=== PATIENT | male | born 2000 | race Caucasian/White ===

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

== ENCOUNTER 2022-04-06 11:09 | Emergency (ER) | payer OTHER, SELFPAY ==
[2022-04-06 11:29] VITALS: BP 143/76; PULSE 85; RESP 17; TEMP 37.2; O2SAT 97; BMI 27.1
--- NOTE | 2022-04-06 11:41 | DI.RAD.S_ITS ---
PROCEDURE: XR FINGER LT MIN 2V INDICATIONS: cut off tip of 1st finger (thumb) TECHNIQUE: AP hand, 2 views of the 1st finger(s) acquired. COMPARISON: None. FINDINGS: Bones: No displaced fracture. No dislocation. Soft tissues: No radiopaque foreign body. Soft tissue injury of the thumb. IMPRESSION: Soft tissue injury of the thumb, without acute osseous abnormality. If there is high concern for occult injury, consider repeat radiography or cross-sectional imaging. Dictated by: Marquise Trevino M.D. on 04/06/2022 at 12:05 Approved by: Marquise Trevino M.D. on 04/06/2022 at 12:06
--- NOTE | 2022-04-06 12:45 | ED_ITS ---
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 He is right-hand dominant, does not remember when his last tetanus was states that it took some time for the bleeding to stop. Related Data Previous Rx's Medication Instructions Recorded guanfacine 1 mg tablet 1 mg PO DAILY #30 tabs 02/22/22 Allergies Allergy/AdvReac Type Severity Reaction Status Date / Time No Known Drug Allergies Allergy Verified 04/06/22 11:31 Review of Systems <JOHN Cristobal - Last Filed: 04/06/22 14:41> Review of Systems ROS Unobtainable: All systems reviewed & are unremarkable except as noted in HPI and below Patient History <JOHN Cristobal - Last Filed: 04/06/22 14:41> Medical History Difficulty concentrating Encounter for routine child health examination without abnormal findings (09/03/16) Mood disorder No acute medical problems Penile adhesions w/skin bridging Substance use disorder Suicidal ideations Surgical History No pertinent past surgical history Social History Smoking Status: Never smoker alcohol intake: never Smoking Status: Never smoker alcohol intake frequency: other Substance Use Type: marijuana Exam <JOHN Cristobal - Last Filed: 04/06/22 14:41> Narrative Exam Narrative: Reviewed vitals signs and nursing notes. General: cooperative, comfortable, in no acute distress, well groomed MSK: moves all digits of left hand, no tendon injury, fingertip amputation with sliver of nail involvement the distal tip. Wound was thoroughly irrigated with normal saline and gauze and cleansed by myself. Finger tip tissue was not reattached. Bleeding was controlled with pressure and was nonstick dressing after antibiotic ointment. Patient tolerated well with pain. Use prilocaine to help with pain control. Skin: brisk capillary refill, without pallor or erythema no suspicious tendon injury or other wound Initial Vital Signs Initial Vital Signs: Vital Signs Temperature 99 F 04/06/22 11:29 Pulse Rate 85 04/06/22 11:29 Respiratory Rate 17 04/06/22 11:29 Blood Pressure 143/76 H 04/06/22 11:29 Pulse Oximetry 97 04/06/22 11:29 Oxygen Delivery Method 04/06/22 11:29 <Ron Gibson MD - Last Filed: 04/10/22 07:51> Initial Vital Signs Initial Vital Signs: Vital Signs Temperature 99 F 04/06/22 11:29 Pulse Rate 85 04/06/22 11:29 Respiratory Rate 17 04/06/22 11:29 Blood Pressure 143/76 H 04/06/22 11:29 Pulse Oximetry 97 04/06/22 11:29 Oxygen Delivery Method 04/06/22 11:29 Course <JOHN Cristobal - Last Filed: 04/06/22 14:41> Orders Ordered: Discontinued Medications Bacitracin (Bacitracin Oint 0.9 Gm Pckt) 1 applic TOP NOW ONE Stop: 04/06/22 12:29 Last Admin: 04/06/22 12:54 Dose: 1 applic Documented By: COLETTE Diphtheria/Tetanus/Acell Pertussis (Tet,Diph,Pertuss(Acell),Vac/Pf 0.5 Ml Syringe) 0.5 ml IM .ONCE ONE Stop: 04/06/22 12:29 Last Admin: 04/06/22 12:53 Dose: 0.5 ml Documented By: COLETTE Ibuprofen (Ibuprofen 400 Mg Tablet) 600 mg PO NOW ONE Stop: 04/06/22 12:32 Last Admin: 04/06/22 12:53 Dose: 600 mg Documented By: COLETTE Lidocaine/Prilocaine (Lidocaine/Prilocaine 5 Gm) 5 gm TOP NOW ONE Stop: 04/06/22 13:01 Last Admin: 04/06/22 13:06 Dose: 5 gm Documented By: COLETTE Vital Signs Vital signs: Vital Signs - 8 hr 04/06/22 11:29 04/06/22 14:16 Temperature 99 F Pulse Rate 85 62 Respiratory Rate 17 18 Blood Pressure 143/76 H 125/69 Pulse Oximetry 97 99 Oxygen Delivery Method Room Air Room Air <Ron Gibson MD - Last Filed: 04/10/22 07:51> Orders Ordered: Discontinued Medications Bacitracin (Bacitracin Oint 0.9 Gm Pckt) 1 applic TOP NOW ONE Stop: 04/06/22 12:29 Last Admin: 04/06/22 12:54 Dose: 1 applic Documented By: COLETTE Diphtheria/Tetanus/Acell Pertussis (Tet,Diph,Pertuss(Acell),Vac/Pf 0.5 Ml Syringe) 0.5 ml IM .ONCE ONE Stop: 04/06/22 12:29 Last Admin: 04/06/22 12:53 Dose: 0.5 ml Documented By: COLETTE Ibuprofen (Ibuprofen 400 Mg Tablet) 600 mg PO NOW ONE Stop: 04/06/22 12:32 Last Admin: 04/06/22 12:53 Dose: 600 mg Documented By: COLETTE Lidocaine/Prilocaine (Lidocaine/Prilocaine 5 Gm) 5 gm TOP NOW ONE Stop: 04/06/22 13:01 Last Admin: 04/06/22 13:06 Dose: 5 gm Documented By: COLETTE Vital Signs Vital signs: Vital Signs - 8 hr 04/06/22 11:29 04/06/22 14:16 Temperature 99 F Pulse Rate 85 62 Respiratory Rate 17 18 Blood Pressure 143/76 H 125/69 Pulse Oximetry 97 99 Oxygen Delivery Method Room Air Room Air MDM - Wound/Laceration <JOHN Cristobal - Last Filed: 04/06/22 14:41> Imaging Data Extremity x-ray #1: Radiologist's Impression: PROCEDURE:? XR FINGER LT MIN 2V ? INDICATIONS:? cut off tip of 1st finger (thumb) ? TECHNIQUE:? AP hand, 2 views of the 1st finger(s) acquired.? ? COMPARISON:? None. ? FINDINGS:? ? Bones:? No displaced fracture.? No dislocation. ? Soft tissues:? No radiopaque foreign body.? Soft tissue injury of the thumb. ? IMPRESSION:? Soft tissue injury of the thumb, without acute osseous abnormality .? If there is high concern for occult injury, consider repeat radiography or cross- sectional imaging. ? ? Dictated by: Marquise Trevino M.D. on 04/06/2022 at 12:05 ? ? Approved by: Marquise Trevino M.D. on 04/06/2022 at 12:06 ? MDM Narrative Medical decision making narrative: Chief Complaint:fingertip amputation Independent historian: Patient Differential diagnoses include but are not limited to: Fingertip amputation fingernail involvement, subungual laceration, tendon injury I have independently reviewed the patient's vital signs and nursing notes as well as prior records if available. This is an L & I claim, and documentation has been filed to medical records, Claim number: [id number] Pertinent Imaging reviewed: Finger x-ray shows soft tissue injury without fracture or bony involvement Course of care: Patient's tetanus was updated, prilocaine was applied to the fingertip, wound cleansing with normal saline, patient tolerated with mild pain. Was given ibuprofen for this, no suspicious tendon injury, sliver of distal fingernail involvement. Bleeding was controlled with pressure and a nonstick dressing with antibiotic ointment. Patient is encouraged to return to work only if the bleeding is controlled and no longer soaking through a Band-Aid. He understands to follow-up with his primary care provider as needed and to return emergency department for redness or streaking up his hand and thumb, range of motion changes, worsening pain or bleeding. Social considerations that may affect disposition: none Questions are addressed and there is agreement with the plan and for follow-up. Patient is appropriate for outpatient management. MIPS: This encounter doesn't have any diagnosis' associated with MIPS criteria. Discharge Plan Departure Patient Disposition: Home Clinical Impression: Work related injury Fingertip amputation Qualifiers: Encounter type: initial encounter Qualified Code(s): S68.119A - Complete traumatic metacarpophalangeal amputation of unspecified finger, initial encounter Instructions: DI for Avulsion Laceration (Not Requiring Sutures), DI for Nail Avulsion Injury Activity Restrictions/Additional Instructions: Thank you for coming in for your fingertip injury, I am sorry for your weight and for how painful this was. Please come back if you develop redness or streaking up your thumb, worsening pain, if the bleeding does not staph or if you are unable to go back to work due to limitations from this injury. Your [place] and [place]: [id number] Please use topical antibiotic ointment of your choice and covered with a Band- Aid so that it is sealed and changed since Band-Aid morning and night. Wear gloves if you return to work on Saturday. Please have nice date this evening, I am sorry for your injury, it should heal over the next 1-2 weeks and be less painful after today. Take ibuprofen 600 mg with 975 mg of Tylenol every 6 hours as needed. Do not take more than 4 g of Tylenol in a 24 hour period. *What to do: *Please continue to take your regular medications as directed. [x ] New medication prescriptions sent to your pharmacy: [ [facility]] [ ] New medication written as a paper prescription [ ] No new medications given *Please follow up with your primary care provider in 2-3 days, call for an appointment. Let them know you were seen in the Emergency Department and that we asked that you be seen for follow-up. We will electronically transmit a record of today's note if your PCP is in our system *If you do not have a primary care provider please contact [phone] to establish care with one of [facility] primary care providers. *Return to Emergency Department if you should have any new, worsening, or concerning symptoms, such as [fever greater than 101F, chills, worsening pain, persistent vomiting or other bothersome symptoms]. Prescriptions: No Action guanfacine 1 mg tablet 1 mg PO DAILY Qty: 30 1RF Referrals: Cristina Gonzales ARNP [Primary Care Provider] - Bret Burns MD [Family Provider] - Stand Alone Forms: Patient Portal/API <Ron Gibson MD - Last Filed: 04/10/22 07:51> [facility]: I was immediately available in the department for consultation. ?This documentation has been reviewed and I agree with assessment and plan. Supervised by Ron Gibson MD
[2022-04-06] MEDS: IBUPROFEN 400 MG TABLET 600 MG PO (12:53)
[2022-04-06] MEDS: TET,DIPH,PERTUSS(ACELL),VAC/PF 0.5 ML SYRINGE IM (12:53)
[2022-04-06] MEDS: BACITRACIN OINT 0.9 GM PCKT 1 APPLIC TOP (12:54)
[2022-04-06] MEDS: LIDOCAINE/PRILOCAINE 5 GM TOP (13:06)
[2022-04-06 14:16] VITALS: BP 125/69; PULSE 62; RESP 18; O2SAT 99
== END 2022-04-06 14:16 | disposition home or self-care (01) ==
PROVIDERS: Emergency Provider Nurse Practitioner Critical Care Medicine; Family Provider Family Medicine; PCP Nurse Practitioner
DX: S68.022A Partial traumatic metacarpophalangeal amputation of left thumb, initial encounter (principal); W26.0XXA Contact with knife, initial encounter; Z23 Encounter for immunization; Y99.0 Civilian activity done for income or pay
CPT/HCPCS: 73140; 90471; 99283; 99284; 90715

== ENCOUNTER → 2022-08-29 12:16 | Outpatient (CLI) | payer OTHER, SELFPAY ==
[2022-08-29 13:37] LABS: Add Manual Diff / Slide Review NO; Basophils Absolute Auto 0 /uL (0-100); Basophils Percent Auto 0.5 % (0-2); Eosinophils Absolute Auto 100 /uL (0-450); Eosinophils Percent Auto 2.5 % (2-4); Hemoglobin 15.3 g/dL (13.5-17.5); Lymphocytes Absolute Auto 1400 /uL (1100-4500); Lymphocytes Percent Auto 25.9 % (25-40); Mean Corpuscular HGB Conc 34.7 % (30-36); Mean Corpuscular Hemoglobin 30.3 PG (26-34); Mean Corpuscular Volume 87.6 fL (80-100); Monocytes Absolute Auto 500 /uL (0-900); Monocytes Percent Auto 8.9 % (3-14); Neutrophils Absolute Auto 3300 /uL (1500-7000); Neutrophils Percent Auto 62.2 % (50-75); Platelet Count 293 X10^3/uL (150-400); Red Blood Cell Count 5.03 X10^6/uL (4.5-5.9); Red Cell Distribution Width 13.6 % (11.6-14.8); White Blood Cell Count 5.3 X10^3/uL (4.5-11.0)
[2022-08-29 13:41] LABS: Alanine Aminotransferase 31 IU/L (<50); Albumin 4.4 g/dL (3.5-5.0); Albumin Globulin Ratio 1.4 (1.0-2.8); Alkaline Phosphatase 53 U/L (38-126); Aspartate Aminotransferase 40 IU/L (17-59); BUN Creatinine Ratio 13.8 (6-22); Blood Urea Nitrogen 12 mg/dL (9-20); Calcium 9.1 mg/dL (8.4-10.2); Carbon Dioxide 28 mmol/L (22-32); Chloride 104 mmol/L (98-107); Estimated Glomerular Filt Rate > 60 mL/min (>60); Globulin 3.1 g/dL (1.7-4.1); Glucose 86 mg/dL (70-100); HEMOLYSIS < 15 (0-50); Potassium 4.3 mmol/L (3.4-5.1); Sodium 138 mmol/L (137-145); Total Protein 7.5 g/dL (6.3-8.2)
[2022-08-29 14:05] LABS: Free T4, Direct Thyroxine 1.24 ng/dL (0.78-2.19)
[2022-08-29 14:19] LABS: Thyroid Stimulating Hormone 0.519 uIU/mL (0.47-4.68)
[2022-08-31 17:51] LABS: HIV 1 & 2 Ab/Ag 4th Gen Combo NEGATIVE (NEGATIVE); Hep C Virus Ab w/Reflex Quant NEGATIVE s/c (NEGATIVE)
== END ==
PROVIDERS: Family Provider Family Medicine; PCP Nurse Practitioner; Referring Provider Nurse Practitioner; Visit Provider Nurse Practitioner
DX: Z00.00 Encounter for general adult medical examination without abnormal findings (principal); Z11.59 Encounter for screening for other viral diseases; Z11.4 Encounter for screening for human immunodeficiency virus [HIV]
CPT/HCPCS: 36415; 80053; 84439; 84443; 84481; 85025; 86803; 87389

== ENCOUNTER → 2024-03-02 16:27 | Outpatient (CLI) | payer OTHER, SELFPAY ==
[2024-03-02 17:11] LABS: Influenza A - CEPHEID Flu A NEGATIVE (NEGATIVE); Influenza B - CEPHEID Flu B NEGATIVE (NEGATIVE); Respiratory Syncytial Virus Negative (Negative)
[2024-03-02 17:21] LABS: COVID-19 CEPHEID 4-PLEX PCR Negative (Negative)
== END ==
PROVIDERS: Family Provider Family Medicine; PCP Nurse Practitioner; Visit Provider Physician Assistant Medical
DX: R05.9 Cough, unspecified (principal)
CPT/HCPCS: 0241U

== ENCOUNTER → 2024-03-02 16:34 | Outpatient (CLI) | payer OTHER, SELFPAY ==
--- NOTE | 2024-03-02 16:35 | DI.RAD.S_ITS ---
PROCEDURE: XR CHEST 2V INDICATIONS: Cough TECHNIQUE: 2 views of the chest were acquired. COMPARISON: None. FINDINGS: Surgical changes and devices: None. Lungs and pleura: Lungs are clear. No pleural effusions or pneumothorax. Mediastinum: Mediastinal contours are normal. Heart size is normal. Bones and chest wall: No suspicious bony abnormalities. Soft tissues appear unremarkable. IMPRESSION: No acute cardiopulmonary abnormality is seen. Dictated by: Cuco Fall M.D. on 03/02/2024 at 16:54 Approved by: Cuco Fall M.D. on 03/02/2024 at 16:54
== END ==
PROVIDERS: Family Provider Family Medicine; PCP Nurse Practitioner; Referring Provider Physician Assistant Medical; Visit Provider Physician Assistant Medical
DX: R05.9 Cough, unspecified (principal)
CPT/HCPCS: 0241U; 71046

== ENCOUNTER → 2024-05-15 10:43 | Outpatient (CLI) | payer OTHER, SELFPAY ==
--- NOTE | 2024-05-15 10:44 | DI.RAD.S_ITS ---
PROCEDURE: XR FOOT LT 2V INDICATIONS: r/o retained FB, stepped on nail TECHNIQUE: 2 views of the foot were acquired. COMPARISON: None. FINDINGS: Bones: No fractures or dislocations. No suspicious bony lesions. Soft tissues: No tibiotalar joint effusion. Achilles tendon appears normal. No radiopaque foreign body. IMPRESSION: No radiopaque foreign body. Dictated by: Elvia Cruz M.D. on 05/15/2024 at 11:01 Approved by: Elvia Cruz M.D. on 05/15/2024 at 11:13
== END ==
PROVIDERS: Family Provider Family Medicine; Referring Provider Nurse Practitioner Family; Visit Provider Nurse Practitioner Family
DX: T14.8XXA Other injury of unspecified body region, initial encounter (principal)
CPT/HCPCS: 73620

== ENCOUNTER 2024-08-05 13:36 | Emergency (ER) | payer OTHER, SELFPAY ==
--- NOTE | 2024-08-05 13:45 | ED_ITS ---
<Statement entered by Joshua Rawls, - 08/05/24 16:42> Dr. Rawls: I was immediately available in the department for consultation. I did not actually see the patient. HPI - Extremity Problem General Chief complaint: Extremity Injury, Lower Stated complaint: Laceration right leg Time Seen by Provider: 08/05/24 13:44 History of Present Illness HPI Narrative: This is a 23-year-old male presents emergency department due to right thigh laceration. He was stepping down from a truck and lacerated his right distal thigh just superior to the knee. His tetanus is up-to-date. He states that his leg was otherwise functioning well. He denies a spreading redness or purulent discharge. Related Data Previous Rx's ?Medication ?Instructions ?Recorded cephalexin 500 mg capsule 500 mg PO QID 5 days #20 cap s 08/05/24 Allergies Allergy/AdvReac Type Severity Reaction Status Date / Time No Known Drug Allergies Allergy Verified 08/05/24 13:51 Review of Systems Review of Systems Narrative: GENERAL: Denies chills, fatigue, malaise, fever, sweats. HEENT: Denies sinus pain, ear pain, sore throat, difficulty swallowing, dizziness. RESPIRATORY: Denies dyspnea, cough, wheezing, hemoptysis, sputum. CARDIOVASCULAR: Denies chest pain, palpitations, orthopnea, edema, GASTROINTESTINAL: Denies nausea, vomiting, abdominal pain, diarrhea, constipation, melena. : Denies dysuria, frequency, incontinence, hematuria, urinary retention. MUSCULOSKELETAL: denies weakness, joint pain, or bony pain SKIN: Right leg laceration NEUROLOGIC: Denies weakness, headache, numbness, change in speech, confusion, seizures, incoordination. PSYCHIATRIC: No concerning psychosocial issues. 12 point review of systems is negative except for those stated above Patient History Medical History Difficulty concentrating Encounter for routine child health examination without abnormal findings (09/03/16) Mood disorder No acute medical problems Penile adhesions w/skin bridging Substance use disorder Suicidal ideations Surgical History No pertinent past surgical history Social History Smoking Status: Current every day smoker alcohol intake: never alcohol intake frequency: other Exam Narrative Exam Narrative: GENERAL: Well-developed patient, in mild distress. HEAD: Atraumatic. Normocephalic. EYES: Pupils equal round and reactive. Extraocular motions intact. No scleral icterus. No injection or drainage. ENT: Nose without bleeding, purulent drainage. Throat without erythema, tonsillar hypertrophy or exudate. Airway patent. NECK: Trachea midline. Non tender EXTREMITIES: No edema or joint tenderness. NEURO: AOx3. SKIN: Laceration to the right distal thigh approximately 10 cm in length with subcutaneous fat exposed. No evidence of any injury to the muscle. No obvious foreign bodies. No active bleeding. Initial Vital Signs Initial Vital Signs: Vital Signs Temperature 98 F 08/05/24 13:51 Pulse Rate 88 08/05/24 13:51 Respiratory Rate 16 08/05/24 13:51 Blood Pressure 135/73 08/05/24 13:51 Pulse Oximetry 96 08/05/24 13:51 Oxygen Delivery Method Room Air 08/05/24 13:51 Procedures Laceration Repair Laceration 1: Time of procedure: 15:53 Site: other (Right leg) Size (cm): 10 Description: linear Depth: simple, single layer (Involves subcutaneous layer as well) Local Anesthetic: lidocaine 1% and with epi Amount of anesthesia used (mL): 10 Pre-repair: irrigated extensively and cleansed with chlorhexadine Skin layer closed with: nylon Skin layer suture size: 4-0 Number of sutures: 13 Technique: simple, interrupted Subcutaneous layer closed with: vicryl Subcutaneous layer suture size: 4-0 Number of sutures: 9 Technique: simple, interrupted Course Orders Ordered: Discontinued Medications Hydrocodone Bitart/Acetaminophen (Hydrocodone/Acet 5/325 Tablet) 1 tab PO NOW ONE Stop: 08/05/24 13:50 Last Admin: 08/05/24 13:57 Dose: 1 tab Documented By: RB Lidocaine/Epinephrine (Lidocaine 1% W/Epi 10ml) 4 ml INJ INTRA-OP ONE Stop: 08/05/24 13:50 Last Admin: 08/05/24 14:05 Dose: 4 ml Documented By: RB Lidocaine/Epinephrine (Lidocaine 1% W/Epi 10ml) 4 ml INJ INTRA-OP ONE Stop: 08/05/24 14:46 Last Admin: 08/05/24 14:39 Dose: 4 ml Documented By: RB Vital Signs Vital signs: Vital Signs - 8 hr 08/05/24 13:51 08/05/24 14:08 Temperature 98 F Pulse Rate 88 Pulse Rate [Right Dorsalis Pedis] 78 Respiratory Rate 16 Blood Pressure 135/73 Pulse Oximetry 96 Oxygen Delivery Method Room Air MDM - Extremity (Nontraumatic) MDM Narrative Medical decision making narrative: ED course: This is a 23-year-old male presenting to the emergency department due to a right thigh laceration. Laceration was deep enough to affect the subcutaneous tissue. Absorbable Vicryl used for the deeper layers as well as nylon for the superficial layers. There was no evidence of foreign bodies. Patient did not exhibit any decrease in extension or flexion at the knee and low concern for any kind of tendon or muscle injury. Laceration was closed without complications. Antibiotics will be prescribed for infection prophylaxis as patient was described the injury to be a fairly dirty nature. CC: Right leg laceration Complicating co-morbidities: None Data collected from: Previous notes Medical records reviewed: Patient was last seen in this emergency department roughly 2 years ago due to a finger laceration. Tetanus was updated. No pertinent medical history. Differential considered, but not limited to: Laceration, fracture, tendon injury Exam documented above, pertinent findings include: No decreased extension at the knee Lab Test results independently reviewed as above. Pertinent findings: None obtained Imaging studies independently reviewed: None obtained Scores Used: None MIPS Elements: None Consultations: None Treatments: Laceration repair Re-evaluations: None Discussion: Discussed plan with the patient was comfortable with the plan Diagnosis: Leg laceration Disposition: see below, along with detailed discharge instructions that have been reviewed with patient as well as indications for ED re-evaluation and additional outpatient follow up Discharge Plan Departure Patient Disposition: Home Clinical Impression: Laceration of leg Activity Restrictions/Additional Instructions: Thank you for coming to the [facility] Emergency Department today. I am glad that we are able to close the laceration. The deeper sutures should dissolve on their own but the skin sutures need to be removed in 10-14 days. You may be seen in the walk-in clinic, here, or any other medical facility for suture removal. Please take the oral antibiotics as prescribed to avoid any kind of infection. I sent the medication to [facility] and [facility]. Please return to the emergency department if you develop any if he has been to notice any purulent drainage or spreading redness or any other concerning signs or symptoms. I hope you feel better soon. Please follow up with your primary care provider within a week if your symptoms continue. If you do not have a primary care provider please contact the [facility] Resource line at [phone]. They will ask some questions about your medical history and help you get set up with a provider in the community. Prescriptions: New cephalexin 500 mg capsule 500 mg PO QID 5 Days Qty: 20 0RF Stand Alone Forms: Patient Portal/API, Work Release Note
[2024-08-05 13:51] VITALS: BP 135/73; PULSE 88; RESP 16; TEMP 36.6; O2SAT 96; BMI 26.4
[2024-08-05] MEDS: HYDROCODONE/ACET 5/325 TABLET 1 TAB PO (13:57)
[2024-08-05] MEDS: LIDOCAINE 1% W/EPI 10ML 4 ML INJ ×2 (14:05→14:39)
[2024-08-05 14:08] VITALS: PULSE 78
[2024-08-05 16:01] VITALS: BP 129/60; PULSE 78; RESP 16; TEMP 36.7; O2SAT 98
== END 2024-08-05 16:00 | disposition home or self-care (01) ==
PROVIDERS: Emergency Provider Physician Assistant Medical; Family Provider Family Medicine
DX: S71.111A Laceration without foreign body, right thigh, initial encounter (principal); W26.8XXA Contact with other sharp object(s), not elsewhere classified, initial encounter; Y99.0 Civilian activity done for income or pay
CPT/HCPCS: 12034; 99283